=== PATIENT | male | born 1970 | race Caucasian/White ===

== ENCOUNTER 2022-07-30 09:22 | Outpatient (CLI) | payer OTHER, SELFPAY ==
[2022-07-30 19:46] LABS: Alanine Aminotransferase 23 U/L (6-50); Albumin Level 4.6 g/dL (3.5-5.1); Alkaline Phosphatase 42 U/L (38-126); Anion Gap 9 mmol/L (8-16); Aspartate Amino Transferase 29 U/L (17-59); Bilirubin,Total 0.6 mg/dL (0.2-1.3); Blood Urea Nitrogen 14 mg/dL (9-20); Calcium 9.2 mg/dL (8.4-10.2); Carbon Dioxide 24 mmol/L (22-30); Chloride 105 mmol/L (98-107); Cholesterol 181 mg/dL (0-200); Estimated Glomerular Filt Rate > 60; Glucose 105 mg/dL (65-110); HDL Direct 69 mg/dL; Potassium 3.5 mmol/L (3.4-5.0); Sodium 138 mmol/L (137-145); Triglycerides 134 mg/dL (<150)
[2022-07-30 19:58] LABS: LDL Cholesterol Direct 71 mg/dL
[2022-07-30 20:16] LABS: Prostate Specific Antigen 0.8 ng/mL (< OR = 4.0)
== END 2022-07-30 09:23 | disposition home or self-care (01) ==
LOC: ANHGOSHLAB 09:23
PROVIDERS: PCP Family Medicine; Visit Provider Family Medicine
DX: L29.9 Pruritus, unspecified (principal); Z13.220 Encounter for screening for lipoid disorders; Z12.5 Encounter for screening for malignant neoplasm of prostate
CPT/HCPCS: 36415; 80053; 80061; 84153; G0103

== ENCOUNTER 2022-09-04 00:45 | Day surgery (SDC) | payer OTHER, SELFPAY ==
[2022-08-26 14:34] VITALS: BMI 22.6
[2022-09-04 09:18] VITALS: BP 106/63; PULSE 43; RESP 18; TEMP 36.2; O2SAT 98; BMI 25.1
[2022-09-04] MEDS: LACTATED RINGERS 1,000 ML 150 ML IV CONT (09:27)
--- NOTE | 2022-09-04 10:05 | PM.HPGS ---
History of Present Illness History of Present Illness Consent: Risks, benefits, and alternatives have been discussed and questions answered. Patient agrees to proceed with procedure. Chief complaint: neoplasm screening Narrative: Shaun Quintero is a 52 year old male here for first screening colonoscopy Review of Systems Constitutional: Constitutional: Denies headache(s) and Denies weakness Eyes: Eyes: Denies blurry vision ENT: Reports Normal hearing present, Denies headache(s) and Denies neck pain Cardiovascular: Cardiovascular: Denies chest pain and Denies dyspnea Respiratory: Respiratory: Denies dyspnea Gastrointestinal: Gastrointestinal: Reports no additional gastrointestinal complaints Genitourinary: Genitourinary: Denies dysuria Musculoskeletal: Musculoskeletal: Denies neck pain Integumentary/Breasts: Skin/Breast: Denies dry skin Neurologic: Reports Normal hearing present, Denies headache(s) and Denies weakness Psychiatric: Psychiatric: Denies anxiety Endocrine: Endocrine: Denies change in body appearance Hematologic/Lymphatic: Hematologic/Lymphatic: Denies easy bleeding Allergic/Immunologic: Allergic/Immunologic: Denies urticaria PMF Past Medical History Medical History (Updated 09/04/22 @ 10:06 by Dominic Ortiz MD) Colon cancer screening Social History Social History Smoking status: Current every day smoker Tobacco type: e-cigarettes/vaping Additional smoking assessment comments: VAPES MARIJUANA Alcohol intake: current Drinks per week: 8 Alcohol use details: BEER Substance use: current Substance use type: marijuana Other substance usage details: OCCASIONALLY Living arrangements: with family Spiritual care concerns: No Meds Home Medications and Allergies Home Medications Medication Instructions Recorded Confirmed Type loratadine 10 mg tablet 10 mg PO DAILY #90 tabs 08/30/22 09/04/22 Rx Allergies Allergy/AdvReac Type Severity Reaction Status Date / Time lamotrigine Allergy Unknown Verified 09/04/22 09:17 Vital Signs Vital Signs - 24 hr 09/04/22 09:18 Temperature 97.2 F L Pulse Rate 43 L Respiratory Rate 18 Blood Pressure 106/63 Pulse Oximetry 98 Oxygen Delivery Room Air Exam Const: General: comfortable and no acute distress HENMT: Face/Nose/Sinus: Normal nares present Eyes: General: appearance normal, both eyes and all related structures Neck: Neck: no JVD Resp: Auscultation: clear to auscultation bilaterally Cardio: Rate: regular rate Rhythm: regular rhythm GI: Inspection: non-distended GI Palp: Yes Soft to palpation Skin: General skin exam: normal color Neuro: General: gait normal Speech: normal speech Extrem: General: normal to inspection Psych: Mental Status: mental status grossly normal Assessment and Plan Assessment and plan (1) Colon cancer screening: Code(s): Z12.11 - Encounter for screening for malignant neoplasm of colon Status: Acute Assessment and Plan: colonoscopy
--- NOTE | 2022-09-04 10:10 | P.PNAN_ITS ---
Anes - Initial Pre Proc Eval Procedure: Operation Date: 09/04/22 10:30 Proposed Procedures p Screening Colonoscopy - Dominic Ortiz MD Date/Time: 09/04/22 10:10 Surgeon: Dominic Ortiz MD Pre Op Diagnosis: neoplasm screening Patient Data Age: 52 Gender: M Height: 1.91 m Weight: 91.1 kg Last Vital Signs Temp 97.2 F L 09/04/22 09:18 Pulse 43 L 09/04/22 09:18 Resp 18 09/04/22 09:18 BP 106/63 09/04/22 09:18 Pulse Ox 98 09/04/22 09:18 O2 Del Method Room Air 09/04/22 09:18 Allergies Allergy/AdvReac Type Severity Reaction Status Date / Time lamotrigine Allergy Unknown Verified 09/04/22 09:17 Home Medications Medication Instructions Recorded Confirmed Type loratadine 10 mg tablet 10 mg PO DAILY #90 tabs 08/30/22 09/04/22 Rx Patient hx anesthesia problems: none Family hx anesthesia problems: none Results Review: All pre-operative results and documents have been reviewed as part of the pre- operative evaluation. [facility] Past Medical History Medical History (Updated 09/04/22 @ 10:06 by Dominic Ortiz MD) Colon cancer screening Social History Social History Smoking status: Current every day smoker Tobacco type: e-cigarettes/vaping Additional smoking assessment comments: VAPES MARIJUANA Alcohol intake: current Drinks per week: 8 Alcohol use details: BEER Substance use: current Substance use type: marijuana Other substance usage details: OCCASIONALLY Living arrangements: with family Spiritual care concerns: No Anes - Eval Final PreProcedure Day of Procedure 09/04/22 10:10 Patient weight: normal Heart: regular rate and rhythm Lungs: clear to auscultation Airway: Mallampati scale class II Neurological: alert and oriented Last oral intake: >/= 8 hours ASA classification: II Emergent: no Anesthetic plan: proceed Anesthesia type and monitoring: general GIVS and standard monitoring Results Review: All pre-operative results and documents have been reviewed as part of the pre- operative evaluation. Informed Consent: The patient's anesthetic plan and its attendant risks and benefits were discussed with the patient/family/POA. Questions were solicited and answers provided to the satisfaction of the patient/family/POA.
[2022-09-04 10:33] VITALS: BP 70/50; PULSE 46; RESP 24; O2SAT 98
[2022-09-04 10:43] VITALS: BP 105/68; PULSE 52; RESP 24; O2SAT 99
[2022-09-04 10:53] VITALS: BP 116/72; PULSE 47; RESP 22; O2SAT 99
== END 2022-09-04 10:58 | disposition home or self-care (01) ==
PROVIDERS: PCP Family Medicine; Visit Provider Internal Medicine Gastroenterology
PROC: 0DJD8ZZ Inspection of Lower Intestinal Tract, Via Natural or Artificial Opening Endoscopic (ICD-10-PCS; CPT 45378; principal; 2022-09-04 10:30)
DX: Z12.11 Encounter for screening for malignant neoplasm of colon (principal); K63.5 Polyp of colon; K62.1 Rectal polyp; K64.8 Other hemorrhoids; F12.90 Cannabis use, unspecified, uncomplicated
CPT/HCPCS: 45380; 45385; 88305; J2704; J7120

== ENCOUNTER 2025-09-28 11:05 | Outpatient (CLI) | payer SELFPAY ==
--- NOTE | ~2025-09-28 | US_ITS ---
EXAMINATION: US scrotum doppler, 09/28/2025 11:07 DOG HANDLER HISTORY: N50.89 - Other specified disorders of the male genital or... Comparison: None Technique: Gillespie-scale and color Doppler images were obtained of the testes with spectral analysis to document arterial and venous flow. Findings: Right Testicle:Right testicle 5.2 x 3.3 x 3.3 cm, normal parenchyma, normal flow. Right Epidiymis:Right epididymis simple cyst 1.9 x 2.1 cm, no increased flow. Left Testicle: Left testicle 4.9 x 2.5 x 3.7 cm, normal parenchyma, normal flow. Left Epidiymis: Unremarkable. Normal flow. Hydrocele: Small simple right hydrocele. Small simple left hydrocele. . Varicocele: None Scrotum: Unremarkable. No skin thickening. Impression: 1. Nonspecific enlarged right epididymal cyst. Urology consult recommended Reviewed, dictated and finalized at location P. HANDLER Impression: 1. Nonspecific enlarged right epididymal cyst. Urology consult recommended
== END 2025-09-28 11:06 | disposition home or self-care (01) ==
PROVIDERS: PCP Nurse Practitioner Family; Visit Provider Nurse Practitioner Family
DX: N50.89 Other specified disorders of the male genital organs (principal)
CPT/HCPCS: 76870; 93976